=== PATIENT | male | born 1955 | race Two or more races ===

== ENCOUNTER 2025-07-02 09:18 | Outpatient (CLI) | payer MEDICARE, OTHER | END 2025-07-02 09:19 | disposition home or self-care (01) | LOC: NAV RAD 09:18 → EDBD 09:18 → NAV RAD 09:19 | PROVIDERS: ATTEND Family Medicine | DX: M25.562 Pain in left knee (principal); G89.29 Other chronic pain; M17.12 Unilateral primary osteoarthritis, left knee ==